=== PATIENT | male | born 1965 | race Caucasian/White ===

== ENCOUNTER 2018-11-23 20:44 | Emergency (ER) | payer OTHER ==
[~2018-11-23] VITALS: Ht 177.8 cm; Wt 106.6 kg
[~2018-11-23 20:44] MED LIST: FLEXERIL PO; HYDROCHLOROTHIA25 M2 PO; NORCO 5-325 TA1 EACH PO
[2018-11-23] MEDS ORDERED: COZAAR 25 MG TA25 M1 PO (21:01)
[2018-11-23] MEDS ORDERED: JANTOVEN1 MG (21:01)
[2018-11-23] MEDS ORDERED: SYNTHROID100 MC1 (21:01)
[2018-11-23] MEDS ORDERED: CLEOCIN HCL150 MG PO (21:37)
[2018-11-23 21:43] VITALS: BP 141/93
== END 2018-11-23 21:44 | disposition home or self-care (01) ==
LOC: M.ERS 20:44
DX: S61.512A Laceration without foreign body of left wrist, initial encounter (principal); I10 Essential (primary) hypertension; E78.00 Pure hypercholesterolemia, unspecified; E03.9 Hypothyroidism, unspecified; E11.9 Type 2 diabetes mellitus without complications; W26.8XXA Contact with other sharp object(s), not elsewhere classified, initial encounter; Y93.89 Activity, other specified; Y92.89 Other specified places as the place of occurrence of the external cause; Y99.8 Other external cause status